=== PATIENT | male | born 1970 | race Two or more races ===

== ENCOUNTER 2022-09-22 17:30 | Emergency (ER) | payer OTHER ==
[~2022-09-22] VITALS: Ht 188 cm; Wt 107.4 kg
[2022-09-22 18:06] VITALS: BP 149/84
[2022-09-22] MEDS ORDERED: ERY05OO OP (19:58)
[2022-09-22] MEDS ORDERED: TETRACAINE HCL 0.5% OPTH(EYE) SOLN 4ML LEFTEYE ONE (20:30)
[2022-09-22] MEDS ORDERED: FLUORESCEIN SOD OPTH TEST STRIP EACHEYE ONE (20:30)
== END 2022-09-22 20:35 | disposition home or self-care (01) ==
LOC: ER 17:37
DX: S05.02XA Injury of conjunctiva and corneal abrasion without foreign body, left eye, initial encounter (principal); J45.909 Unspecified asthma, uncomplicated; Z79.2 Long term (current) use of antibiotics; X58.XXXA Exposure to other specified factors, initial encounter; Y93.89 Activity, other specified; Y92.89 Other specified places as the place of occurrence of the external cause; Y99.8 Other external cause status